=== PATIENT | female | born 1960 | race Caucasian/White ===

== ENCOUNTER → 2018-07-09 12:23 | Outpatient (CLI) | payer OTHER, SELFPAY ==
[2018-07-10 04:10] LABS: HEPATITIS B SURFACE AG Negative (Negative); Hepatitis A AB, Total Negative (Negative); Hepatitis A IgM Antibody Negative (Negative); Hepatitis B Core AB IgM Negative (Negative); Hepatitis B Core Ab Total Negative (Negative); Hepatitis C Ab <0.1 s/co ratio (0.0-0.9)
[2018-07-10 11:10] LABS: Hep B Surface Antibodies Reactive (.)
== END ==
PROVIDERS: Family Provider Family Medicine; PCP Family Medicine; Referring Provider Dermatology Pediatric Dermatology; Visit Provider Dermatology Pediatric Dermatology
DX: L66.1 Lichen planopilaris (principal); L40.0 Psoriasis vulgaris
CPT/HCPCS: 36415; 86704; 86705; 86706; 86708; 86709; 86803; 87340

== ENCOUNTER → 2018-11-12 12:17 | Outpatient (CLI) | payer OTHER, SELFPAY ==
--- NOTE | 2018-11-12 12:20 | RAD_ITS ---
STUDY: X-RAY - CERVICAL SPINE REASON FOR EXAM: Female, 58 years old. Cervical pain. TECHNIQUE: 6 view(s) of the cervical spine were obtained. COMPARISON: None FINDINGS: Normal anterior atlantoaxial articulation. Normal odontoid process. Normal cervical lordosis. There is multi-level endplate spondylosis. Normal disc space heights. There is minimal neural foraminal narrowing on the right C5-6 and on the left C5-C6 and C6-7. There is no evidence of acute fracture or loss of vertebral axial height. There is maintenance of normal alignment The soft tissue structures are unremarkable. RAD/Cerv Spine 4 or 5 Views IMPRESSION: Mild degenerative changes of the cervical spine. Electronically Signed: Cade Webber DO at 21:36 EST Tel [phone], Service support ,
== END ==
PROVIDERS: Family Provider Family Medicine; PCP Family Medicine; Referring Provider Family Medicine; Visit Provider Family Medicine
DX: M54.2 Cervicalgia (principal); G89.29 Other chronic pain
CPT/HCPCS: 36415; 72050

== ENCOUNTER → 2018-12-13 11:10 | Outpatient (CLI) | payer OTHER, SELFPAY ==
--- NOTE | 2018-12-13 11:18 | RAD_ITS ---
STUDY: X-RAY - LUMBAR SPINE REASON FOR EXAM: Female, 58 years old. Chronic pain radiating to left leg TECHNIQUE: 5 view(s) of the lumbar spine were obtained. COMPARISON: Prior comparison studies are not available for review at this time. FINDINGS: Normal lumbar lordosis. There is no substantial scoliosis. There is a normal alignment of the vertebrae. There is diffuse demineralization with multi-level endplate spondylosis. Disc spaces are relatively preserved. There is no demonstrated fracture. There is no demonstrated spondylolysis of the pars interarticulares. The soft tissue structures are unremarkable. RAD/L/S Spine Min 4 Views IMPRESSION: 1. Mild spondylosis. Relative preservation of disc spaces. 2. No spondylolisthesis or spondylolysis. Electronically Signed: Morris Dawson MD at 12:08 EDT , Service support ,
== END ==
PROVIDERS: Family Provider Family Medicine; PCP Family Medicine; Referring Provider Nurse Practitioner Family; Visit Provider Nurse Practitioner Family
DX: M54.9 Dorsalgia, unspecified (principal)
CPT/HCPCS: 72110

== ENCOUNTER → 2020-04-13 16:27 | Outpatient (CLI) | payer OTHER, SELFPAY ==
[2020-04-13 17:31] LABS: Hematocrit 42.8 % (37-47); Hemoglobin 13.6 g/dL (12.0-15.0); Mean Corp Hgb Conc 31.8 g/dL (32-36); Mean Corpuscular Volume 97.5 fL (81-99); Mean Platelet Vol. 9.8 fl (6.2-12.0); Platelet Count 313 K/mm3 (150-450); RBC Distribution Width CV 12.2 % (11.6-14.6); RBC Distribution Width SD 44.4 fl (35.1-43.9); Red Blood Count 4.39 M/mm3 (4.2-5.4); White Blood Count 7.8 K/mm3 (4.4-11.0)
[2020-04-13 17:49] LABS: BUN 9 mg/dL (7-18); Creatinine, Serum 0.76 mg/dL (0.55-1.02); Glucose 96 mg/dL (74-106)
[2020-04-13 17:50] LABS: AST(SGOT) 23 U/L (15-37); Alanine Aminotransfer ALT/SGPT 29 U/L (13-56); Albumin, Serum 3.8 g/dL (3.2-5.0); Alkaline Phosphatase 77 U/L (45-117); Anion Gap 3 (5-15); BUN/Creat Ratio 11.8 RATIO (10-20); Calcium,Total 8.6 mg/dL (8.5-10.1); Chloride 107 mmol/L (98-107); Cholesterol 227 mg/dL (200); EST Glomerular Filtration Rate 83 mL/min (>60); Est Glom Filt Rate - Afr Amer 101 mL/min (>60); Globulin 3.8 g/dL (2.2-4.2); High Density Lipoprotein 67 mg/dL; Magnesium 2.5 mg/dL (1.6-2.6); Phosphorus 2.8 mg/dL (2.5-4.9); Potassium 3.7 mmol/L (3.5-5.1); Protein, Total 7.6 g/dL (6.4-8.2); Sodium Level 138 mmol/L (136-145); Thyroid Stim Hormone (TSH) 3.03 uIU/mL (0.358-3.74); Triglycerides 249 mg/dL; Very Low Density Lipoprotein 50 mg/dL (5-40)
[2020-04-13 18:30] LABS: Vitamin B12 > 2000 pg/mL (211-911); Vitamin D,25 Hydroxy 35.3 ng/mL
[2020-04-14 08:32] LABS: PTHIN 79.4 pg/mL (18.4-80.1)
== END ==
PROVIDERS: PCP Family Medicine; Referring Provider Family Medicine; Visit Provider Family Medicine
DX: K50.90 Crohn's disease, unspecified, without complications (principal); Z13.220 Encounter for screening for lipoid disorders; M81.0 Age-related osteoporosis without current pathological fracture; E53.8 Deficiency of other specified B group vitamins
CPT/HCPCS: 80053; 80061; 82306; 82330; 82607; 83735; 83970; 84100; 84443; 85027

== ENCOUNTER → 2020-06-18 13:08 | Outpatient (CLI) | payer OTHER, SELFPAY | PROVIDERS: PCP Family Medicine; Referring Provider Internal Medicine Gastroenterology; Visit Provider Internal Medicine Gastroenterology | DX: K50.90 Crohn's disease, unspecified, without complications (principal) | CPT/HCPCS: 36415 ==

== ENCOUNTER → 2021-07-15 | Outpatient (CLI) | payer OTHER, SELFPAY ==
[2021-07-20 13:27] LABS: HPV APTIMA, High Risk Negative (Negative)
[2021-07-20 13:32] LABS: HPV Reflexed? YES, CHARGE PATIENT
== END | disposition home or self-care (01) ==
PROVIDERS: PCP Family Medicine; Visit Provider Registered Nurse
DX: Z12.4 Encounter for screening for malignant neoplasm of cervix (principal)
CPT/HCPCS: 87624; 88175; G0145

== ENCOUNTER 2021-12-19 08:26 | Outpatient (CLI) | payer OTHER, SELFPAY ==
[2021-12-19 10:17] LABS: Erythrocyte Sedimentation Rate 8 mm/hr (0-30)
[2021-12-19 10:18] LABS: Hematocrit 41.4 % (37-47); Hemoglobin 13.6 g/dL (12.0-15.0); Mean Corp Hgb Conc 32.9 g/dL (32-36); Mean Corpuscular Hgb 31.4 pg (27.0-32.0); Mean Corpuscular Volume 95.6 fL (81-99); Mean Platelet Vol. 9.7 fl (6.2-12.0); Platelet Count 288 K/mm3 (150-450); RBC Distribution Width CV 12.4 % (11.6-14.6); Red Blood Count 4.33 M/mm3 (4.2-5.4); White Blood Count 5.1 K/mm3 (4.4-11.0)
[2021-12-19 10:28] LABS: PTHIN 96.4 pg/mL (18.4-80.1)
[2021-12-19 10:38] LABS: Vitamin B12 > 2000 pg/mL (211-911); Vitamin D,25 Hydroxy 26.1 ng/mL
[2021-12-19 10:48] LABS: AST(SGOT) 18 U/L (15-37); Alanine Aminotransfer ALT/SGPT 24 U/L (13-56); Albumin, Serum 3.7 g/dL (3.2-5.0); Alkaline Phosphatase 87 U/L (45-117); Anion Gap 5 (5-15); BUN 14 mg/dL (7-18); BUN/Creat Ratio 17.5 RATIO (10-20); Calcium,Total 8.9 mg/dL (8.5-10.1); Chloride 106 mmol/L (98-107); Cholesterol 217 mg/dL (200); EST Glomerular Filtration Rate 78 mL/min (>60); Est Glom Filt Rate - Afr Amer 95 mL/min (>60); Globulin 3.6 g/dL (2.2-4.2); Glucose 100 mg/dL (74-106); High Density Lipoprotein 62 mg/dL; Iron 56 ug/dL (50-170); Phosphorus 2.6 mg/dL (2.5-4.9); Potassium 3.9 mmol/L (3.5-5.1); Protein, Total 7.3 g/dL (6.4-8.2); Sodium Level 140 mmol/L (136-145); Thyroid Stim Hormone (TSH) 2.48 uIU/mL (0.358-3.74); Triglycerides 126 mg/dL; Very Low Density Lipoprotein 25 mg/dL (5-40)
== END 2021-12-19 23:59 | disposition home or self-care (01) ==
LOC: MTLAB 08:27
PROVIDERS: PCP Family Medicine; Referring Provider Family Medicine; Visit Provider Family Medicine
DX: K50.90 Crohn's disease, unspecified, without complications (principal); E53.8 Deficiency of other specified B group vitamins
CPT/HCPCS: 80053; 80061; 82306; 82330; 82607; 83540; 83735; 83970; 84100; 84443; 85027; 85652

== ENCOUNTER → 2022-06-22 | Outpatient (CLI) | payer OTHER, SELFPAY ==
[2022-06-22 10:06] LABS: Absolute Neutrophil Count 2.6 X10^3/uL (2.0-7.7); Basophil# 0.03 X10^3/uL; Basophil% 0.6 % (0-1); Eosinophil# 0.32 X10^3/uL; Eosinophils% 6.2 % (0-5); Hematocrit 41.4 % (37-47); Hemoglobin 13.7 g/dL (12.0-15.0); Lymphocyte % 32.9 % (19-41); Mean Corp Hgb Conc 33.1 g/dL (32-36); Mean Corpuscular Hgb 32.4 pg (27.0-32.0); Mean Corpuscular Volume 97.9 fL (81-99); Mean Platelet Vol. 9.6 fl (6.2-12.0); Monocyte# 0.47 X10^3/uL; Monocyte% 9.1 % (0-10); NRBC Flagged by Analyzer 0 % (0-5); Neutrophil # 2.63 X10^3/uL (2.7-7.7); Platelet Count 273 K/mm3 (150-450); RBC Distribution Width CV 12.6 % (11.6-14.6); RBC Distribution Width SD 45.2 fl (35.1-43.9); Red Blood Count 4.23 M/mm3 (4.2-5.4); White Blood Count 5.2 K/mm3 (4.4-11.0)
[2022-06-22 10:30] LABS: PTHIN 90.2 pg/mL (18.4-80.1)
[2022-06-22 10:34] LABS: Vitamin D,25 Hydroxy 25.6 ng/mL
[2022-06-22 10:41] LABS: AST(SGOT) 24 U/L (15-37); Alanine Aminotransfer ALT/SGPT 29 U/L (13-56); Albumin, Serum 3.6 g/dL (3.2-5.0); Alkaline Phosphatase 94 U/L (45-117); Anion Gap 4 (5-15); BUN 9 mg/dL (7-18); BUN/Creat Ratio 13.2 RATIO (10-20); Chloride 108 mmol/L (98-107); Creatinine, Serum 0.68 mg/dL (0.55-1.02); EST Glomerular Filtration Rate 93 mL/min (>60); Est Glom Filt Rate - Afr Amer 113 mL/min (>60); Globulin 3.5 g/dL (2.2-4.2); Glucose 94 mg/dL (74-106); Magnesium 2.2 mg/dL (1.6-2.6); Potassium 3.9 mmol/L (3.5-5.1); Protein, Total 7.1 g/dL (6.4-8.2); Sodium Level 141 mmol/L (136-145); Thyroid Stim Hormone (TSH) 3.95 uIU/mL (0.358-3.74)
[2022-06-23 15:47] LABS: V-Zoster IgG (Immunity) 819 index (Immune >165)
== END | disposition home or self-care (01) ==
LOC: MFPLAB 09:24
PROVIDERS: PCP Family Medicine; Referring Provider Family Medicine; Visit Provider Family Medicine
DX: Z01.84 Encounter for antibody response examination (principal); K50.90 Crohn's disease, unspecified, without complications; M81.0 Age-related osteoporosis without current pathological fracture
CPT/HCPCS: 36415; 80053; 82306; 82330; 83735; 83970; 84443; 85025; 86787

== ENCOUNTER → 2022-12-26 | Outpatient (CLI) | payer OTHER, SELFPAY ==
[2022-12-26 10:35] LABS: Anion Gap 1 (5-15); BUN 12 mg/dL (7-18); BUN/Creat Ratio 15.2 RATIO (10-20); Calcium,Total 9.3 mg/dL (8.5-10.1); Chloride 107 mmol/L (98-107); Creatinine, Serum 0.79 mg/dL (0.55-1.02); EST Glomerular Filtration Rate 79 mL/min (>60); Est Glom Filt Rate - Afr Amer 95 mL/min (>60); Glucose 106 mg/dL (74-106); Potassium 3.9 mmol/L (3.5-5.1); Sodium Level 137 mmol/L (136-145); T4 Free Direct 1.17 ng/dL (0.76-1.46); Thyroid Stim Hormone (TSH) 5.52 uIU/mL (0.358-3.74)
[2022-12-26 10:54] LABS: Vitamin D,25 Hydroxy 35.2 ng/mL
== END | disposition home or self-care (01) ==
LOC: MFPLAB 08:58
PROVIDERS: PCP Family Medicine; Referring Provider Family Medicine; Visit Provider Family Medicine
DX: E21.3 Hyperparathyroidism, unspecified (principal); R79.89 Other specified abnormal findings of blood chemistry; E55.9 Vitamin D deficiency, unspecified
CPT/HCPCS: 36415; 80048; 82306; 83970; 84439; 84443

== ENCOUNTER → 2023-08-14 | Outpatient (CLI) | payer OTHER, SELFPAY ==
[2023-08-14 12:28] LABS: Ionized Calcium 5.03 mg/dL (4.36-5.20)
[2023-08-14 12:28] LABS: Anion Gap 5 (5-15); BUN 10 mg/dL (7-18); BUN/Creat Ratio 13.2 RATIO (10-20); Calcium,Total 8.8 mg/dL (8.5-10.1); Chloride 107 mmol/L (98-107); Cholesterol 226 mg/dL (200); Creatinine, Serum 0.76 mg/dL (0.55-1.02); EST Glomerular Filtration Rate 82 mL/min (>60); Est Glom Filt Rate - Afr Amer 100 mL/min (>60); Glucose 96 mg/dL (74-106); High Density Lipoprotein 74 mg/dL; Magnesium 2.4 mg/dL (1.6-2.6); Phosphorus 2.7 mg/dL (2.5-4.9); Potassium 4.5 mmol/L (3.5-5.1); Sodium Level 140 mmol/L (136-145); Thyroid Stim Hormone (TSH) 2.31 uIU/mL (0.358-3.74); Triglycerides 125 mg/dL; Very Low Density Lipoprotein 25 mg/dL (5-40)
[2023-08-14 12:29] LABS: PTHIN 96.9 pg/mL (18.4-80.1)
[2023-08-14 12:31] LABS: Vitamin B12 > 2000 pg/mL (211-911); Vitamin D,25 Hydroxy 59.1 ng/mL
== END | disposition home or self-care (01) ==
LOC: MTLAB 10:26
PROVIDERS: PCP Family Medicine; Referring Provider Family Medicine; Visit Provider Family Medicine
DX: E21.3 Hyperparathyroidism, unspecified (principal); M81.0 Age-related osteoporosis without current pathological fracture; R79.89 Other specified abnormal findings of blood chemistry; E61.2 Magnesium deficiency; E55.9 Vitamin D deficiency, unspecified; E53.8 Deficiency of other specified B group vitamins; Z13.220 Encounter for screening for lipoid disorders
CPT/HCPCS: 80048; 80061; 82306; 82330; 82607; 83735; 83970; 84100; 84443

== ENCOUNTER → 2023-11-01 | Outpatient (CLI) | payer OTHER, SELFPAY ==
--- NOTE | 2023-11-01 08:08 | BI_ITS ---
MAMMOGRAPHY - BILATERAL SCREENING REASON FOR EXAM: Female, 63 years old. Routine annual screening examination. PERTINENT HISTORY: Non-contributory. TECHNIQUE: Digital bilateral breast heaven (3D mammographic acquisition) in the CC and MLO projections. 2-D mediolateral oblique (MLO) and craniocaudad (CC) views of both breasts were obtained. CAD: Full Field Digital Mammography with Computer Added Detection was performed. COMPARISON: Comparison is made with prior outside examination dated August 31, 2017. FINDINGS: Breast Composition: The breasts are extremely dense, which lowers the sensitivity of mammography. There are no dominant masses or suspicious calcifications. Small benign-appearing bilateral axillary lymph nodes. No other significant abnormalities are identified. There has been no significant change since the prior study. BI/SCRN MAMM (CAD)W/HEAVEN BILAT IMPRESSION: Stable bilateral screening mammogram. Yearly follow-up mammogram recommended. (A) ASSESSMENT CATEGORY: BIRADS Category 2: Benign. A letter regarding these results will be sent to the patient by the facility within 30 days. Approximately 10% of breast cancers are not detected by mammography. A normal mammogram should not delay biopsy of a clinically suspicious abnormality. [id number] Electronically Signed: Robin Broussard MD at 8:46 EST ,
--- OUTSIDE RECORDS SUMMARY | 2023-11-01 08:14 | XMS RPT_ITS | CCD ---
Author Name Unknown Address [address] [place] [address] Organization [facility] Care Team Providers Care Industrial Maintenance Repairer Helper Name Role Phone Helio Wiley Unavailable [phone] Kris Castaneda Unavailable Unavailabl e Allergies Allergy Classification Reported Allergen(s) Allergy Type Date of Onset Reaction(s) Facility (1 source) inFLIXimab Drug Allergy Hives/Urticaria [facility] (1 source) Penicillin Drug Allergy Itching [facility] Medications Current Medications Medication Drug Class(es) Dates Sig (Normalized) Sig (Original) 0.8 ml adalimumab 50 mg/ml prefilled syringe (1 source) Tumor Necrosis Factor Alpesh Humira 40 mg/0.8 mL subcutaneous kit ; subcutaneous every 2 weeks Quantity: 0 Refills: 0 Ordered: 08-Nov-2020 Raquel Treadwell Generic Substitution Allowed Cholecalciferol (1 source) Vitamin D take 1 tablet by mouth once daily Vitamin D3 ; 1 tab(s) orally once a day Quantity: 0 Refills: 0 Ordered: 08-Nov-2020 Raquel Treadwell Generic Substitution Allowed 12 hr HYDROcodone bitartrate 10 mg extended release oral capsule (1 source) Opioid Agonist take 1 capsule by mouth every twelve hours as needed HYDROcodone 10 mg oral capsule, extended release ; 1 cap(s) orally every 12 hours, As Needed Quantity: 0 Refills: 0 Ordered: 11-Nov-2020 Rhoda Dye Generic Substitution Allowed nitrofurantoin, macrocrystals 25 mg / nitrofurantoin, monohydrate 75 mg oral capsule (1 source) Nitrofuran Antibacterial take 1 capsule by mouth once daily Macrobid 100 mg oral capsule ; 1 cap(s) orally once a day Quantity: 0 Refills: 0 Ordered: 08-Nov-2020 Raquel Treadwell Generic Substitution Allowed Completed/Discontinued Medications Medication Drug Class(es) Dates Sig (Normalized) Sig (Original) predniSONE 20 mg oral tablet (1 source) Start: 08-23-2021 End: 08-23-2021 take 1 tablet by mouth once at mealtime, then take 1 tablet by mouth once daily, then take 1 tablet by mouth once daily predniSONE 20 mg oral tablet ; 1 tab(s) orally once 3XDAY FOR 3 DAYS THEN 1 TAB DAILY 2X DAY FOR 3 DAYS THEN ONE TAB DAILY FOR 3 DAYS Quantity: 18 Refills: 0 Ordered: 23-Aug-2021 Freeman Miranda Start: 23-Aug-2021 End: 23-Aug-2021 Generic Substitution Allowed Comments: It is very important that you take or use this exactly as directed. Do not skip doses or discontinue unless directed by your doctor.Obtain medical advice before taking any non-prescription drugs as some may affect the action of this medication.Take with food or milk. Problems Problem Classification Problem Date Documented Da te Episodic/Chronic Nonspecific chest pain (5 sources) Chest pain; Translations: [Chest pain, unspecified] 08-23-2021 Episodic Spondylosis; intervertebral disc disorders; other back problems (1 source) Cervical radiculopathy; Translations: [Brachial neuritis or radiculitis NOS] 08-23-2021 Episodic Unclassified (2 sources) CHEST PAINS 08-23-2021 Results Test Name Value Interpretation Reference Range Facil ity Vital Signs Date Time Vital Sign Value Performing Clinician Lindy orellana 08-23-2021 12:00-0500 Diastolic blood pressure 68 mm[Hg] Helio Wiley Other Phone: [facility] 08-23-2021 12:00-0500 Heart rate 70 /min Helio Wiley Other Phone: [facility] 08-23-2021 12:00-0500 Respiratory rate 16 /min Helio Wiley Other Phone: [facility] 08-23-2021 12:00-0500 SaO2% (BldA) [Mass fraction] 99 % Helio Wiley Other Phone: [facility] 08-23-2021 12:00-0500 Systolic blood pressure 115 mm[Hg] Helio Wiley Other Phone: [facility] 08-23-2021 08:40-0500 Body height 165.1 cm Helio Wiley Other Phone: [facility] 08-23-2021 08:40-0500 Body temperature 99.14 [degF] Helio Wiley Other Phone: [facility] 08-23-2021 08:40-0500 Body weight 55 kg Helio Wiley Other Phone: [facility] Encounters Encounter Date Encounter Type Care Provider Facility Start: 08-23-2021 End: 08-23-2021 Emergency department patient visit Kris Castaneda [facility] Emergency 14 Procedures Date Procedure Procedure Detail Performing Clinician Start: 08-23-2021 End: 08-23-2021 EKG impression Kris Castaneda Start: 08-23-2021 End: 08-23-2021 EKG impression Kris Castaneda Plan of Treatment Date Care Activity Detail Author Start: 11-25-2020 H/O: L cataract extraction History of cataract surgery, left Date: 25-Nov-2020 [facility] Start: 11-11-2020 H/O: R cataract extraction History of right cataract surgery Date: 11-Nov-2020 [facility] Hip fracture Hip fracture [facility] History of laser ass isted in situ keratomileusis History of laser assisted in situ keratomileusis [facility] Payers Date Payer Category Payer Policy ID Unknown [facility] [place] Social History Date Type Detail Facility [facility] Tobacco smoking consumption unknown [facility] Clinical Notes 10-22-2020 to 11-26-2020 Note Date & Type Note Facility 11-26-2020 Note HNO ID: [id number] Author: Zane Ortiz Service: ? Author Type: Physician Type: Progress Notes Filed: 11/26/2020 8:25 AM Note Text: ASSESSMENT/PLAN: 1. Status post cataract extraction and insertion of intraocular lens of right eye - ICD9: V45.61, V43.1, ICD10: Z98.41, Z96.1 (primary diagnosis) 2. Status post cataract extraction and insertion of intraocular lens of left eye - ICD9: V45.61, V43.1, ICD10: Z98.42, Z96.1 Continue medications as directed: Current Ophthalmic Meds prednisoLONE acetate (PRED FORTE, ECONOPRED PLUS) 1 % ophthalmic suspension Use 1 Drop in the left eye four times daily four 7 days, then three times daily until 12/30/2020 keTORolac (ACULAR) 0.5 % ophthalmic solution Use 1 Drop in the left eye four times daily four 7 days, then three times daily until 12/30/2020 keTORolac (ACULAR) 0.5 % ophthalmic solution Use 1 Drop in the right eye three times daily until 12/16/2020 prednisoLONE acetate (PRED FORTE) 1 % ophthalmic suspension Use 1 Drop in the right eye three times daily until 12/16/2020 Systane Complete Artificial Tears - Use 1 Drop into both eyes three times a day. No follow up appointment given at [facility]/ [place], patient to follow up with [facility] 3. Status post LASIK surgery of both eyes - ICD9: V45.69, ICD10: Z98.890 4. High myopia, bilateral/history of high myopia - ICD9: 367.1, ICD10: H52.13 Axial length- right eye 27.12 left eye 27.53 Signs symptoms of detached retina discussed with patient Recommend dilated exam in 2 weeks Zane Ortiz MD I have confirmed and edited as necessary the relevant ophthalmic history, review of systems, surgical history, and ophthalmological examination findings as obtained by the ophthalmic technical staff. I have seen and examined Heather Mckeon. I have discussed the examination findings, diagnosis, and treatment options with Heather Mckeon and/or her family. I have also reviewed and agree with the assessment and plan as stated above and agree with all its relevant components. I gave the patient the opportunity to ask questions about the findings, diagnosis, and treatment options. [facility] 11-25-2020 Note Post Operative Note: Post-Procedure Diagnosis: 1. Combined Form Age Related Cataract Left Eye 2. Regular Astigmatism Left Eye Procedure: 1. Cataract Extraction with Toric Intraocular Lens Implant Left Eye Surgeon: Zane Ortiz MD Resident/Fellow/Other Junior Mechanical Engineer: None Estimated Blood Loss (mL): none Specimen: no Findings: 1. Combined Form Age Related Cataract Left Eye 2. Regular Astigmatism Left Eye Operative Report Dictated: Dictation: not applicable - note contains Operative Report Operative Report: The patient was correctly identified in the pre-operative area and the operative eye was marked. The operative eye was dilated in the pre-op area. Under the slit lamp the operative eye was marked using a fine marking pen at 3 o'clock, 6 o'clock and 9 o'clock at the limbus. The patient was taken to the operating room and time out was performed prior to starting the procedure. Combined anesthesia with IV sedation and topical tetracaine eye drops was given. The operative eye was prepped and draped in the standard sterile ophthalmic fashion in preparation for the ophthalmic surgery. A Hernandez wire speculum was then placed between the eyelids and the operative microscope was placed over the operative eye. The corrected axis of the Toric Intraocular lens was marked with the help of a marking pen before the start of the procedure. A paracentesis incision was made approximately 30 degrees from the planned surgical incision site with the help of the MVR blade. 1% Lidocaine MPF with Phenylephrine 1.5% PF was injected into the anterior chamber through the paracentesis incision. A near limbal clear corneal incision was fashioned in the temporal quadrant just outside the vascular arcade and viscoat was injected into the anterior chamber to firm the eye. A bent needle cystotome and Utrata forceps were used to create a continuous curvilinear capsulorrhexis. BSS was injected beneath the anterior capsule to hydrodissect the nucleus free form the adjacent cortex and capsule. The nucleus of the cataractous lens was removed with the phacoemulsification instrument. The residual cortex was aspirated with the irrigation/aspiration handpiece. The posterior capsule was then polished with the help of soft irrigation/aspiration tip. Provisc viscoelastic was then injected into the eye to form the anterior chamber and to open the capsular bag. Toric intraocular lens implant was taken from the sterile wrapping, inspected under the surgical microscope and found to be in good condition. The toric intraocular lens implant 21.0D T3 was injected into the capsular bag and rotated to its desired axis of 100. The viscoeclastic material was aspirated from the anterior chamber and from behind the lens optics. The anterior chamber was inflated with the help of BSS to moderate tension and the edges of the surgical incision were hydrated with BSS. Vigamox was injected into the anterior chamber and into the capsular bag through the paracentesis incision. The surgical incision was inspected and found to be water tight. The wire speculum and drapes were removed. Pred Forte eye drops, Acular eye drops and Betadine 5% sterile ophthalmic was instilled into the conjunctival sac. The patient tolerated the procedure well and was taken to the recovery room in stable condition. Signature/Cosignature/Attestation: Note Completion: Attending AttestationI performed the procedure without a resident Electronic Signatures: Zane Ortiz) (Signed 25-Nov-2020 08:12) Authored: Post Operative Note, Note Completion Last Updated: 25-Nov-2020 08:12 by Zane Ortiz) [facility] 11-25-2020 Note History & Physical R eviewed: /Lactating: Are You no Are You Currently Breastfeedingno I have reviewed the History and Physical dated: 20-Nov-2020 History and Physical reviewed and relevant findings noted. Patient examined to review pertinent physical findings.: No significant changes Home Medications Reviewed: no changes noted Allergies Reviewed: no changes noted ERAS (Enhanced Recovery After Surgery): ERAS Patient: no Consent: COVID-19 Consent: COVID-19 Risk ConsentSurgeon has reviewed marcus risks related to the risk of kristyn COVID-19 and if they contract COVID-19 what the risks are. Signatures/Attestation: Note Completion: Attending Provider Inpatient Certification StatementObservation patient/other outpatient visits Electronic Signatures: Zane Ortiz) (Signed 25-Nov-2020 06:51) Authored: History & Physical Reviewed, ERAS, Consent, Note Completion Last Updated: 25-Nov-2020 06:51 by Zane Ortiz) [facility] 11-20-2020 Note HNO ID: [id number] Author: Zane Ortiz Service: ? Author Type: Physician Type: Progress Notes Filed: 11/20/2020 11:47 AM Note Text: ASSESSMENT/PLAN: 1. Combined forms of age-related cataract of left eye - ICD9: 366.19, ICD10: H25.812 (primary diagnosis) Cataract Presurgical Documentation Cataract: Left Eye Patient reported symptoms: Associated symptoms Positive for: Blurred Vision, decreased vision, difficulty with reading, difficulty with watching television, halos, glare, starbursts Negative for: Double Vision, foreign body sensation, photophobia, eye discharge, crossed eye, wandering eye Current Visual Acuity: Right Eye Distance SC 20/25 Left Eye Distance CC 20/50 Visual Function: Heather Mckeon states that the decline in vision from the cataract impedes the ability to read small print and watch television as well as other activities of daily living. Heather Mckeon has confirmed that she is no longer able to function adequately on a day-to-day basis because of her current visual condition. Further, it is my medical opinion that the cataract is the primary cause, or at least a significantly contributory cause of her visual dysfunction. With uncomplicated cataract surgery and lens implantation, it is my expectation that her visual function and quality of life will improve, significantly. The risks, benefits, alternatives, personnel and complications of cataract surgery with lens implantation were discussed with Heather Mckeon in detail. She appeared to understand and asked that I proceed with plans for surgery. Patient wishes to have traditional cataract surgery with astigmatism correction by Toric Intraocular lens. Patient wishes to have cataract surgery with the option stated above. Patient understands that an intraocular lens implant does not necessarily replace the need for glasses. Patient understands that it is impossible for the surgeon to inform him/her of every possible complication that may occur. The surgeon has answered all of the patient's questions. Patient understands that if he/she has a mature or dense cataract, pseudoexfoliation cataract, or history of use of Flomax, he/she may require the use of Maluyugin Ring and/or Vision Blue during surgery. Patient understands the risks, benefits, and alternatives to surgery. Traditional Cataract Surgery with Toric Intraocular Lens Implant Left Eye scheduled for 11/25/2020 at [facility]. Discussed modified monovision with patient, patient would like to proceed with modified monovision target -1.25 left eye Current Ophthalmic Meds fluorometholone (FML LIQUID FILM) 0.1 % ophthalmic suspension Use 1 Drop in the left eye three times daily. Continue: Systane Complete solution instill 1 drop 3 times daily Both Eyes. PHYSICAL EXAM: Vital Signs: Blood pressure 98/78, pulse 73, temperature 36.7 ?C (98.1 ?F). Respiratory: Normal breath sounds, no wheezing. CARD: Normal heart sounds 1 AND 2, normal sinus rhythm. Order placed for COVID-19 testing to be done at [facility]. Hospital to contact patient with date and time. 2. Regular astigmatism of left eye - ICD9: 367.21, ICD10: H52.222 Traditional Cataract Surgery with Toric Intraocular Lens Implant Left Eye scheduled for 11/25/2020 at [facility]. 3. Status post cataract extraction and insertion of intraocular lens of right eye - ICD9: V45.61, V43.1, ICD10: Z98.41, Z96.1 Current Ophthalmic Meds keTORolac (ACULAR) 0.5 % ophthalmic solution Use 1 Drop in the right eye four times daily. prednisoLONE acetate (PRED FORTE) 1 % ophthalmic suspension Use 1 Drop in the right eye four times daily. 4. Status post LASIK surgery of both eyes - ICD9: V45.69, ICD10: Z98.890 Monitor 5. Crohn's disease with complication, unspecified gastrointestinal tract location (HCC) - ICD9: 555.9, ICD10: K50.919 Continue to monitor with primary care physician. 6. Arthritis - ICD9: 716.90, ICD10: M19.90 Continue to monitor with primary care physician. Zane Ortiz MD I have confirmed and edited as necessary the relevant ophthalmic history, review of systems, surgical history, and ophthalmological examination findings as obtained by the ophthalmic technical staff. I have seen and examined Heather Mckeon. I have discussed the examination findings, diagnosis, and treatment options with Heather Mckeon and/or her family. I have also reviewed and agree with the assessment and plan as stated above and agree with all its relevant components. I gave the patient the opportunity to ask questions about the findings, diagnosis, and treatment options. [facility] 11-12-2020 Note HNO ID: [id number] Author: Zane Ortiz Service: ? Author Type: Physician Type: Progress Notes Filed: 11/12/2020 9:33 AM Note Text: ASSESSMENT/PLAN: 1. Status post cataract extraction and insertion of intraocular lens of right eye - ICD9: V45.61, V43.1, ICD10: Z98.41, Z96.1 (primary diagnosis) -Intraocular lens well centered -Patient pleased with post operative vision -Patient to see Dr. Reyes in one week 2. Combined form of age-related cataract, left eye - ICD9: 366.19, ICD10: H25.812 -Patient wishes to have traditional cataract surgery with basic Intraocular lens scheduled for the left eye on 11-25-2020 at [facility]. Patient wishes to have cataract surgery with the option stated above. Patient understands that an intraocular lens implant does not necessarily replace the need for glasses. Patient understands that it is impossible for the surgeon to inform him/her of every possible complication that may occur. The surgeon has answered all of the patient's questions. Patient understands that if he/she has a mature or dense cataract, pseudoexfoliation cataract, or history of use of Flomax, he/she may require the use of Maluyugin Ring and/or Vision Blue during surgery. Patient understands the risks, benefits, and alternatives to surgery. -Patient wishes to have the left eye corrected for near vision, I have advised patient to speak with Dr. Reyes in regards to the level of near correction that would benefit patient. 3. Regular astigmatism of left eye - ICD9: 367.21, ICD10: H52.222 -Stable / Observe -Patient declines any form of astigmatism correction available in combination with cataract surgery of the left eye. 4. Status post LASIK surgery of both eyes - ICD9: V45.69, ICD10: Z98.890 -History of high myopia in both eyes -Laser in situ keratomileusis performed in 1997 5. Crohn's disease with complication, unspecified gastrointestinal tract location (HCC) - ICD9: 555.9, ICD10: K50.919 6. Arthritis - ICD9: 716.90, ICD10: M19.90 -Continue care with your primary care provider and/or specialists as directed. Zane Ortiz MD I have confirmed and edited as necessary the relevant ophthalmic history, review of systems, surgical history, and ophthalmological examination findings as obtained by the ophthalmic technical staff. I have seen and examined Heather Mckeon. I have discussed the examination findings, diagnosis, and treatment options with Heather Mckeon and/or her family. I have also reviewed and agree with the assessment and plan as stated above and agree with all its relevant components. I gave the patient the opportunity to ask questions about the findings, diagnosis, and treatment options. [facility] 11-11-2020 Note Post Operative Note: Post-Procedure Diagnosis: 1. Combined Form Age Related Cataract Right eye Procedure: 1. Cataract Extraction with Intraocular Lens Implant Right Eye Surgeon: Zane Ortiz MD Resident/Fellow/Other Junior Mechanical Engineer: None Estimated Blood Loss (mL): none Specimen: no Findings: 1. Combined Form Age Related Cataract Right eye Operative Report Dictated: Dictation: not applicable - note contains Operative Report Operative Report: The patient was correctly identified and the patient's operative eye was marked with a marking pen and verified with the patient in the pre-operative area. The operative eye was dilated in the preoperative area. The patient was then taken to the operating room where timeout was performed before starting the procedure. Combined anesthesia with intravenous sedation and topical tetracaine eyedrops were instilled into the right eye. The operative eye was prepped and draped in the standard sterile ophthalmic fashion in preparation for ophthalmic surgery. A Hernandez wire speculum was then inserted between the eyelids of the right eye and the operating microscope was placed over the right eye. A paracentesis incision was made approximately 30 away from the planned surgical incision site with the help of MVR blade. 1% lidocaine MPF with Phenylephrine 1.5% PF was injected into the anterior chamber through the paracentesis incision. A near limbal clear corneal incision was fashioned in the temporal quadrant just outside the vascular arcade and Viscoat was injected into anterior chamber to firm the eye. A bent needle cystotome was used and Utrata forceps were utilized to create a continuous curvilinear capsulorrhexis. BSS was injected beneath the anterior capsule to hydrodissect the nucleus from adjacent cortex and capsule. The residual cortex was then aspirated with irrigation/aspiration handpiece. The posterior capsule was then polished with the help of soft irrigation-aspiration tip. Provisc viscoelastic was then injected into the eye to reform the anterior chamber and to open the capsular bag. The intraocular lens implant was taken from its sterile wrapping, inspected under the surgical microscope and found to be in good condition. The intraocular lens implant 18.0D was injected into the capsule bag. The Provisc was then aspirated from the anterior chamber and from behind the intraocular lens implant. The anterior chamber was inflated with the help of BSS to moderate tension. And the edges of the surgical incision were then hydrated with the help of BSS. Vigamox was then injected into the anterior chamber and into the capsule bag through the paracentesis incision. The surgical wound was then inspected and found to be watertight. The wire speculum and drapes were then removed. Pred Forte eyedrops, Acular eyedrops and Betadine 5% sterile ophthalmic solution were instilled in the conjunctival sac. The patient tolerated the procedure well and was taken to recovery room in stable condition. Signature/Cosignature/Attestation: Note Completion: Attending AttestationI performed the procedure without a resident Electronic Signatures: Zane Ortiz) (Signed 11-Nov-2020 11:17) Authored: Post Operative Note, Note Completion Last Updated: 11-Nov-2020 11:17 by Zane Ortiz) [facility] 11-11-2020 Note History & Physical R eviewed: /Lactating: Are You no Are You Currently Breastfeedingno I have reviewed the History and Physical dated: 06-Nov-2020 History and Physical reviewed and relevant findings noted. Patient examined to review pertinent physical findings.: No significant changes Home Medications Reviewed: no changes noted Allergies Reviewed: no changes noted ERAS (Enhanced Recovery After Surgery): ERAS Patient: no Consent: COVID-19 Consent: COVID-19 Risk ConsentSurgeon has reviewed marcus risks related to the risk of kristyn COVID-19 and if they contract COVID-19 what the risks are. Signatures/Attestation: Note Completion: Attending Provider Inpatient Certification StatementObservation patient/other outpatient visits Electronic Signatures: Zane Ortiz) (Signed 11-Nov-2020 08:48) Authored: History & Physical Reviewed, ERAS, Consent, Note Completion Last Updated: 11-Nov-2020 08:48 by Zane Ortiz) [facility] 11-08-2020 Note HNO ID: [id number] Author: Zane Ortiz Service: ? Author Type: Physician Type: Progress Notes Filed: 11/08/2020 4:24 PM Note Text: ASSESSMENT/PLAN: 1. Combined forms of age-related cataract of right eye - ICD9: 366.19, ICD10: H25.811 (primary diagnosis) PHYSICAL EXAM: Vital Signs: Blood pressure 98/78, pulse 73. Respiratory: Normal breath sounds, no wheezing. CARD: Normal heart sounds 1 AND 2, normal sinus rhythm. Cataract Presurgical Documentation Cataract:Right eye Patient reported symptoms: Associated symptoms Positive for: Blurred Vision, decreased vision, floaters, difficulty with reading, difficulty with watching television, dryness, halos, glare, starbursts Negative for: Eye Redness, foreign body sensation, itching, flashes, tearing Current Visual Acuity: Right Eye Distance CC 20/50 Left Eye Distance CC 20/40 Visual Function: Heather Mckeon states that the decline in vision from the cataract impedes the ability to read, watch television as well as other activities of daily living. Heather Mckeon has confirmed that she is no longer able to function adequately on a day-to-day basis because of her current visual condition. Further, it is my medical opinion that the cataract is the primary cause, or at least a significantly contributory cause of her visual dysfunction. With uncomplicated cataract surgery and lens implantation, it is my expectation that her visual function and quality of life will improve, significantly. The risks, benefits, alternatives, personnel and complications of cataract surgery with lens implantation were discussed with Heather Mckeon in detail. she appeared to understand and asked that I proceed with plans for surgery. Patient wishes to have traditional cataract surgery with basic Intraocular lens 11/11/2020 at [facility]. Patient wishes to have cataract surgery with the option stated above. Patient understands that an intraocular lens implant does not necessarily replace the need for glasses. Patient understands that it is impossible for the surgeon to inform him/her of every possible complication that may occur. The surgeon has answered all of the patient's questions. Patient understands that if he/she has a mature or dense cataract, pseudoexfoliation cataract, or history of use of Flomax, he/she may require the use of Maluyugin Ring and/or Vision Blue during surgery. Patient understands the risks, benefits, and alternatives to surgery. Order placed for COVID-19 testing to be done at [facility]. Hospital to contact patient with date and time. 3. Combined form of age-related cataract, left eye - ICD9: 366.19, ICD10: H25.812 4. Regular astigmatism of left eye - ICD9: 367.21, ICD10: H52.222 Plan surgery left eye once right eye is completed 5. Status post LASIK surgery of both eyes - ICD9: V45.69, ICD10: Z98.890 History of high myopia -Laser in situ keratomileusis performed in 1997 Patient was cleared by Dr. Oliavrez/retina 6. Crohn's disease with complication, unspecified gastrointestinal tract location (HCC) - ICD9: 555.9, ICD10: K50.919 Continue care with primary care physician 7. Arthritis - ICD9: 716.90, ICD10: M19.90 Continue care with primary care physician Zane Ortiz MD I have confirmed and edited as necessary the relevant ophthalmic history, review of systems, surgical history, and ophthalmological examination findings as obtained by the ophthalmic technical staff. I have seen and examined Heather Mckeon. I have discussed the examination findings, diagnosis, and treatment options with Heather Mckeon and/or her family. I have also reviewed and agree with the assessment and plan as stated above and agree with all its relevant components. I gave the patient the opportunity to ask questions about the findings, diagnosis, and treatment options. [facility] 11-06-2020 Note HNO ID: [id number] Author: Zane Ortiz Service: ? Author Type: Physician Type: Progress Notes Filed: 11/06/2020 8:58 AM Note Text: ASSESSMENT/PLAN: 1. Combined forms of age-related cataract of right eye - ICD9: 366.19, ICD10: H25.811 (primary diagnosis) 2. Regular astigmatism of right eye - ICD9: 367.21, ICD10: H52.221 PHYSICAL EXAM: Vital Signs: Blood pressure 98/78, pulse 73. Respiratory: Normal breath sounds, no wheezing. CARD: Normal heart sounds 1 AND 2, normal sinus rhythm. Cataract Presurgical Documentation Cataract:Right eye Patient reported symptoms: Associated symptoms Positive for: Blurred Vision, difficulty with driving, difficulty with reading, difficulty with watching television, dryness, glare Negative for: Flashes, floaters, tearing, halos, burning Current Visual Acuity: Right Eye Distance CC 20/50 Left Eye Distance CC 20/40 Visual Function: Heather Mckeon states that the decline in vision from the cataract impedes the ability to read, watch television as well as other activities of daily living. Heather Mckeon has confirmed that she is no longer able to function adequately on a day-to-day basis because of her current visual condition. Further, it is my medical opinion that the cataract is the primary cause, or at least a significantly contributory cause of her visual dysfunction. With uncomplicated cataract surgery and lens implantation, it is my expectation that her visual function and quality of life will improve, significantly. The risks, benefits, alternatives, personnel and complications of cataract surgery with lens implantation were discussed with Heather Mckeon in detail. she appeared to understand and asked that I proceed with plans for surgery. Patient wishes to have traditional cataract surgery with basic Intraocular lens 11/11/2020 at [facility]. Patient wishes to have cataract surgery with the option stated above. Patient understands that an intraocular lens implant does not necessarily replace the need for glasses. Patient understands that it is impossible for the surgeon to inform him/her of every possible complication that may occur. The surgeon has answered all of the patient's questions. Patient understands that if he/she has a mature or dense cataract, pseudoexfoliation cataract, or history of use of Flomax, he/she may require the use of Maluyugin Ring and/or Vision Blue during surgery. Patient understands the risks, benefits, and alternatives to surgery. Order placed for COVID-19 testing to be done at [facility]. Hospital to contact patient with date and time. 3. Combined form of age-related cataract, left eye - ICD9: 366.19, ICD10: H25.812 4. Regular astigmatism of left eye - ICD9: 367.21, ICD10: H52.222 Plan surgery left eye once right eye is completed 5. Status post LASIK surgery of both eyes - ICD9: V45.69, ICD10: Z98.890 History of high myopia -Laser in situ keratomileusis performed in 1997 Patient was cleared by Dr. Olivarez/retina 6. Crohn's disease with complication, unspecified gastrointestinal tract location (HCC) - ICD9: 555.9, ICD10: K50.919 Continue care with primary care physician 7. Arthritis - ICD9: 716.90, ICD10: M19.90 Continue care with primary care physician Zane Ortiz MD I have confirmed and edited as necessary the relevant ophthalmic history, review of systems, surgical history, and ophthalmological examination findings as obtained by the ophthalmic technical staff. I have seen and examined Heather Mckeon. I have discussed the examination findings, diagnosis, and treatment options with Heather Mckeon and/or her family. I have also reviewed and agree with the assessment and plan as stated above and agree with all its relevant components. I gave the patient the opportunity to ask questions about the findings, diagnosis, and treatment options. [facility] 11-04-2020 Note HNO ID: [id number] Author: Zen Olivarez Service: ? Author Type: Physician Type: Progress Notes Filed: 11/04/2020 8:31 AM Note Text: Referred by Dr. Ortiz for eval before ctaract surgery- high myop 1. Previous high myopis s/p laser in situ keratomileusis (LASIK) -some cobblestone in periph, no other retinal pathology 2. Small nevus right eye 3. Nuclear sclerosis both eyes Plan to get done by Dr. Ortiz Clear for surgery Plan: Return to retina as needed I have confirmed and edited as necessary the relevant ophthalmic history, ROS, and the neuro exam findings as obtained by others. I have seen and examined this patient. I have discussed the case and the management of this patient's care with the Resident/Fellow, if applicable. I also have reviewed and agree with the assessment and plan as stated above and agree with all of its relevant components. Zen Olivarez MD [facility] 10-22-2020 Note HNO ID: [id number] Author: Zane Ortiz Service: ? Author Type: Physician Type: Progress Notes Filed: 10/22/2020 10:59 AM Note Text: ASSESSMENT/PLAN: 1. Combined form of age-related cataract, right eye - ICD9: 366.19, ICD10: H25.811 (primary diagnosis) 2. Combined form of age-related cataract, left eye - ICD9: 366.19, ICD10: H25.[address] Reyes's examination and notes today Blood pressure 98/78, pulse 73. Begin medications as directed: Current Ophthalmic Meds fluorometholone (FML LIQUID FILM) 0.1 % ophthalmic suspension Use 1 Drop in both eyes three times daily. Systane Complete Artificial Tears - Use 1 Drop into both eyes three times a day. Patient to have retina evaluation with Dr. Olivarez prior to cataract surgery Follow up 11/06/2020 for repeat Ascan 3. Status post LASIK surgery of both eyes - ICD9: V45.69, ICD10: Z98.890 4. High myopia, bilateral - ICD9: 367.1, ICD10: H52.13 History of high myopia -Laser in situ keratomileusis performed in [address] Olivarez 11/04/2020 5. Crohn's disease with complication, unspecified gastrointestinal tract location (HCC) - ICD9: 555.9, ICD10: K50.919 Continue care with primary care physician 6. Arthritis - ICD9: 716.90, ICD10: M19.90 Continue care with primary care physician Zane Ortiz MD I have confirmed and edited as necessary the relevant ophthalmic history, review of systems, surgical history, and ophthalmological examination findings as obtained by the ophthalmic technical staff. I have seen and examined Heather Mckeon. I have discussed the examination findings, diagnosis, and treatment options with Heather Mckeon and/or her family. I have also reviewed and agree with the assessment and plan as stated above and agree with all its relevant components. I gave the patient the opportunity to ask questions about the findings, diagnosis, and treatment options. [facility] Summary Purpose Family History No Family History Records FoundNo Family History Records FoundNo Family History Records FoundNo Family History Records FoundNo Family History Records FoundNo Family History Records FoundNo Family History Records Found Advance Directives No Advanced Directives Records FoundNo Advanced Directives Records FoundNo Advanced Directives Records FoundNo Advanced Directives Records FoundNo Advanced Directives Records FoundNo Advanced Directives Records FoundNo Advanced Directives Records Found Additional Source Comments INFORMATION SOURCE (unrecogn ized section and content) DATE CREATED AUTHOR AUTHOR'S ORGANIZ ATION 02/06/2019 [facility] DATE CREATED AUTHOR AUTHOR'S ORGANIZ ATION 04/05/2019 [facility] DATE CREATED AUTHOR AUTHOR'S ORGANIZ ATION 12/11/2019 [employer] DATE CREATED AUTHOR AUTHOR'S ORGANIZ ATION 11/24/2020 [facility] DATE CREATED AUTHOR AUTHOR'S ORGANIZ ATION 08/26/2021 [facility] DATE CREATED AUTHOR AUTHOR'S ORGANIZ ATION 10/14/2021 [facility] <item> Privacy Markings (unrecogniz ed section and content) Section Author: Ashley Del Valle PROHIBITION ON REDISCLOSURE OF CONFIDENTIAL INFORMATION This notice accompanies a disclosure of information concerning a client made to you with the consent of such client. FOR RECORDS PERTAINING TO PATIENTS WHO ARE OR HAVE BEEN ENROLLED IN A CHEMICAL DEPENDENCY/SUBSTANCEABUSE PROGRAM, SOME INFORMATION MAY BE OMITTED. This clinical summary was aggregated from multiple sources. Caution should be exercised in using it in the provision of clinical care. This summary normalizes information from multiple sources, and as a consequence, information in this document may materially change the coding, format and clinical context of patient data. In addition, data may be omitted in some cases. CLINICAL DECISIONS SHOULD BE BASED ON THE PRIMARY CLINICAL RECORDS. [employer] provides no warranty or guarantee of the accuracy or completeness of information in this document.
--- NOTE | 2023-11-01 08:30 | BD_ITS ---
STUDY: DUAL ENERGY X-RAY ABSORPTIOMETRY / DXA REASON FOR EXAM: Female, 63 years old. [id number] TECHNIQUE: Bone Mineral Density (BMD) measurements of lumbar spine and right hip were obtained. COMPARISON: None. FINDINGS: Lumbar Spine (L1-L4): g/cm2 (0.635) / T-score (-3.7) / Z-score (-2.3) Findings are suggestive of osteoporosis with a high fracture risk. Right Femur Total: g/cm2 (0.587) / T-score (-2.9) / Z-score (-1.9) Right Femoral Neck: g/cm2 (0.410) / T-score (-4.0) / Z-score (-2.6) BD/Dexa Bone Density Study IMPRESSION: The patient is considered osteoporotic as outlined below according to World Tod Organization (WHO) criteria with a high fracture risk. Reference Information: The T-score is the number of standard deviations above or below the standard which is normal for young adults at their peak bone mineral density. The World Health Organization (WHO) interprets the T-scores as follows: Above -1 Normal bone density Between -1 and -2.5 Osteopenia Equal to / or below -2.5 Osteoporosis As a practical clinical guideline, osteopenia may be graded as follows: Mild -1 through -1.5 Moderate -1.6 through -2.0 Severe -2.1 through -2.4 The Z-score is the number of standard deviations above or below age-matched controls. A Z-score of less than -1.5 would be considered abnormal. References: 1. NIH Osteoporosis and Related Bone Diseases www osteo.org 2. International Society for Clinical Densitometry www iscd.org 3. National Osteoporosis Foundation www nof.org Electronically Signed: Robin Broussard MD at 12:20 EST ,
== END | disposition home or self-care (01) ==
PROVIDERS: PCP Family Medicine; Referring Provider Family Medicine; Visit Provider Family Medicine
DX: Z12.31 Encounter for screening mammogram for malignant neoplasm of breast (principal); M81.0 Age-related osteoporosis without current pathological fracture
CPT/HCPCS: 77063; 77067; 77080

== ENCOUNTER → 2023-11-30 | Outpatient (CLI) | payer OTHER, SELFPAY ==
--- OUTSIDE RECORDS SUMMARY | 2023-11-30 09:55 | XMS RPT_ITS | CCD ---
Author Name Unknown Address [address] [place] [address] Organization [facility] Care Team Providers Care Burial Needs Salesperson Name Role Phone Helio Wiley Unavailable [phone] Kris Castaneda Unavailable Unavailabl e Allergies Allergy Classification Reported Allergen(s) Allergy Type Date of Onset Reaction(s) Facility (1 source) inFLIXimab Drug Allergy Hives/Urticaria [facility] (1 source) Penicillin Drug Allergy Itching [facility] Medications Current Medications Medication Drug Class(es) Dates [...] Time Vital Sign Value Performing Clinician Lindy orlelana 08-23-2021 12:00-0500 Diastolic blood pressure 68 mm[Hg] Helio Wiley Other Phone: [facility] 08-23-2021 12:00-0500 Heart rate 70 /min Helio Wiley Other Phone: [facility] 08-23-2021 12:00-0500 Respiratory rate 16 /min Helio Wiley Other Phone: [facility] 08-23-2021 12:00-0500 SaO2% (BldA) [Mass fraction] 99 % Helio Wiley Other Phone: [facility] 08-23-2021 12:00-0500 Systolic blood pressure 115 mm[Hg] Helio Wiley Other Phone: [facility] 08-23-2021 08:40-0500 Body height 165.1 cm Helio Wiley Other Phone: [facility] 08-23-2021 08:40-0500 Body temperature 99.14 [degF] Helio Wiley Other Phone: [facility] 08-23-2021 08:40-0500 Body weight 55 kg Helio Wiley Other Phone: [facility] Encounters Encounter Date Encounter Type Care Provider Facility Start: 08-23-2021 End: 08-23-2021 Emergency department patient visit Kris Castaneda [facility] Emergency 14 Procedures Date Procedure Procedure Detail Performing Clinician Start: 08-23-2021 End: 08-23-2021 EKG impression Kris Castaneda Start: 08-23-2021 End: 08-23-2021 EKG impression Kris Castaneda Plan of Treatment Date Care Activity Detail Author Start: 11-25-2020 H/O: L cataract extraction History of cataract surgery, left Date: 25-Nov-2020 [facility] Start: 11-11-2020 H/O: R cataract extraction History of right cataract surgery Date: 11-Nov-2020 [facility] Hip fracture Hip fracture [facility] History of laser ass isted in situ keratomileusis History of laser assisted in situ keratomileusis [facility] Payers Date Payer Category Payer Policy ID Unknown [facility] [place] Social History Date Type Detail Facility [facility] Tobacco smoking consumption unknown [facility] Clinical Notes 10-22-2020 to 11-26-2020 Note Date & Type Note Facility 11-26-2020 Note HNO ID: [id number] Author: Zane Ortiz Service: ? Author Type: [...] day. No follow up appointment given at [facility] [place], patient to follow up with [facility] 3. Status post LASIK surgery [...] about the findings, diagnosis, and treatment options. [facility] 11-25-2020 Note Post Operative Note: Post-Procedure Diagnosis: 1. Combined Form Age Related Cataract Left Eye 2. Regular Astigmatism Left Eye Procedure: 1. Cataract Extraction with Toric Intraocular Lens Implant Left Eye Surgeon: Zane Ortiz MD Resident/Fellow/Other Yarn Sizer: None Estimated Blood Loss (mL): none Specimen: [...] Last Updated: 25-Nov-2020 08:12 by Zane Ortiz) [facility] 11-25-2020 Note History & Physical R eviewed: [...] Last Updated: 25-Nov-2020 06:51 by Zane Ortiz) [facility] 11-20-2020 Note HNO ID: [id number] Author: Zane Ortiz Service: ? Author Type: [...] Implant Left Eye scheduled for 11/25/2020 at [facility]. Discussed modified monovision with patient, patient would [...] for COVID-19 testing to be done at [facility]. Hospital to contact patient with date and time. 2. Regular astigmatism of left eye - ICD9: 367.21, ICD10: H52.222 Traditional Cataract Surgery with Toric Intraocular Lens Implant Left Eye scheduled for 11/25/2020 at [facility]. 3. Status post cataract extraction and insertion [...] technical staff. I have seen and examined Heahter Mckeon. I have discussed the examination findings, diagnosis, and treatment options with Heather Mckeon and/or her family. I have also reviewed and agree with the assessment and plan as stated above and agree with all its relevant components. I gave the patient the opportunity to ask questions about the findings, diagnosis, and treatment options. [facility] 11-12-2020 Note HNO ID: [id number] Author: Zane Ortiz Service: ? Author Type: [...] for the left eye on 11-25-2020 at [facility]. Patient wishes to have cataract surgery [...] about the findings, diagnosis, and treatment options. [facility] 11-11-2020 Note Post Operative Note: Post-Procedure Diagnosis: 1. Combined Form Age Related Cataract Right eye Procedure: 1. Cataract Extraction with Intraocular Lens Implant Right Eye Surgeon: Zane Ortiz MD Resident/Fellow/Other Yarn Sizer: None Estimated Blood Loss (mL): none Specimen: [...] Last Updated: 11-Nov-2020 11:17 by Zane Ortiz) [facility] 11-11-2020 Note History & Physical R eviewed: [...] Last Updated: 11-Nov-2020 08:48 by Zane Ortiz) [facility] 11-08-2020 Note HNO ID: [id number] Author: Zane Ortiz Service: ? Author Type: [...] surgery with basic Intraocular lens 11/11/2020 at [facility]. Patient wishes to have cataract surgery with [...] for COVID-19 testing to be done at [facility]. Hospital to contact patient with date [...] about the findings, diagnosis, and treatment options. [facility] 11-06-2020 Note HNO ID: [id number] Author: Zane Ortiz Service: ? Author Type: [...] surgery with basic Intraocular lens 11/11/2020 at [facility]. Patient wishes to have cataract surgery with [...] for COVID-19 testing to be done at [facility]. Hospital to contact patient with date [...] about the findings, diagnosis, and treatment options. [facility] 11-04-2020 Note HNO ID: [id number] Author: Zen Olivarez Service: ? Author Type: [...] of its relevant components. Zen Olivarez MD [facility] 10-22-2020 Note HNO ID: [id number] Author: Zane Ortiz Service: ? Author Type: [...] about the findings, diagnosis, and treatment options. [facility] Summary Purpose Family History No Family History [...] CREATED AUTHOR AUTHOR'S ORGANIZ ATION 02/06/2019 [facility] DATE CREATED AUTHOR AUTHOR'S ORGANIZ ATION 04/05/2019 [facility] DATE CREATED AUTHOR AUTHOR'S ORGANIZ ATION 12/11/2019 [employer] DATE CREATED AUTHOR AUTHOR'S ORGANIZ ATION 11/24/2020 [facility] DATE CREATED AUTHOR AUTHOR'S ORGANIZ ATION 08/26/2021 [facility] DATE CREATED AUTHOR AUTHOR'S ORGANIZ ATION 10/14/2021 [facility] <item> Privacy Markings (unrecogniz ed section and [...] BE BASED ON THE PRIMARY CLINICAL RECORDS. [employer] provides no warranty or guarantee of the accuracy or completeness of information in this document.
[2023-11-30 10:55] LABS: Absolute Lymphocyte Count 1.63 X10^3/uL (0.83-4.51); Absolute Neutrophil Count 3.8 X10^3/uL (2.0-7.7); Basophil# 0.03 X10^3/uL; Basophil% 0.5 % (0-1); Eosinophil# 0.17 X10^3/uL; Eosinophils% 2.8 % (0-5); Hematocrit 40.8 % (37-47); Lymphocyte # 1.63 X10^3/ul (0.83-4.51); Lymphocyte % 27.2 % (19-41); Mean Corp Hgb Conc 31.9 g/dL (32-36); Mean Corpuscular Hgb 30.2 pg (27.0-32.0); Mean Corpuscular Volume 94.7 fL (81-99); Mean Platelet Vol. 9.8 fl (6.2-12.0); Monocyte# 0.41 X10^3/uL; Monocyte% 6.8 % (0-10); NRBC Flagged by Analyzer 0 % (0-5); Neutrophil # 3.75 X10^3/uL (2.7-7.7); Neutrophil % 62.5 % (47-70); Platelet Count 291 K/mm3 (150-450); RBC Distribution Width CV 12.6 % (11.6-14.6); RBC Distribution Width SD 43.7 fl (35.1-43.9); Red Blood Count 4.31 M/mm3 (4.2-5.4)
[2023-11-30 11:14] LABS: PTHIN 100.4 pg/mL (18.4-80.1)
[2023-11-30 11:18] LABS: Anion Gap 4 (5-15); BUN 11 mg/dL (7-18); Chloride 110 mmol/L (98-107); Creatinine, Serum 0.69 mg/dL (0.55-1.02); EST Glomerular Filtration Rate 92 mL/min (>60); Est Glom Filt Rate - Afr Amer 112 mL/min (>60); Glucose 100 mg/dL (74-106); Magnesium 2.2 mg/dL (1.6-2.6); Phosphorus 2.2 mg/dL (2.5-4.9); Potassium 3.6 mmol/L (3.5-5.1); Sodium Level 141 mmol/L (136-145)
[2023-11-30 11:20] LABS: Vitamin D,25 Hydroxy 39.5 ng/mL
== END | disposition home or self-care (01) ==
LOC: MTLAB 09:28
PROVIDERS: PCP Family Medicine; Referring Provider Family Medicine; Visit Provider Family Medicine
DX: E21.3 Hyperparathyroidism, unspecified (principal); M81.0 Age-related osteoporosis without current pathological fracture
CPT/HCPCS: 36415; 80048; 82306; 83735; 83970; 84100; 85025

== ENCOUNTER → 2023-12-07 | Outpatient (CLI) | payer OTHER, SELFPAY ==
--- NOTE | 2023-12-07 12:45 | RAD_ITS ---
STUDY: X-RAY - LUMBOSACRAL SPINE REASON FOR EXAM: Female, 63 years old. Spondylosis without myelopathy or radiculopathy, lumbosacral jenny TECHNIQUE: 6 view(s) of the lumbosacral spine were obtained. COMPARISON: Prior comparison studies are not available for review at this time. FINDINGS: Normal lumbar lordosis. There is no substantial scoliosis. There is normal alignment of the vertebrae on flexion, extension and neutral views. There is multilevel endplate spondylosis of the lumbar vertebrae. Normal disc space heights. No spondylolysis. No compression fracture. Normal bilateral sacral ala, sacroiliac joints, and visualized sacrum. Normal visualized soft tissue structures. RAD/L/S Spine w Bend Min 6 Vw IMPRESSION: Mild spondylosis. Electronically Signed: Morris Dawson MD ([place]) at 22:22 EDT ,
== END | disposition home or self-care (01) ==
LOC: RAD 12:21
PROVIDERS: PCP Family Medicine; Referring Provider Anesthesiology Pain Medicine; Visit Provider Anesthesiology Pain Medicine
DX: M47.817 Spondylosis without myelopathy or radiculopathy, lumbosacral region (principal)
CPT/HCPCS: 72114

== ENCOUNTER → 2024-01-16 | Outpatient (CLI) | payer OTHER, SELFPAY ==
[2024-01-16 13:07] LABS: 24HR UR TOTAL VOLUME 600 ml; Calcium Urine pH Range 1; Urine Calcium (Random) > 37.5 (Not Estab.)
== END | disposition home or self-care (01) ==
PROVIDERS: PCP Family Medicine; Referring Provider Family Medicine; Visit Provider Family Medicine
DX: E21.3 Hyperparathyroidism, unspecified (principal)
CPT/HCPCS: 81050; 82340

== ENCOUNTER → 2025-02-18 | Outpatient (CLI) | payer OTHER, SELFPAY ==
[2025-02-18 10:31] LABS: Erythrocyte Sedimentation Rate 6 mm/hr (0-30)
[2025-02-18 10:50] LABS: ALB/GLOB Ratio 1.7 RATIO (0.9-2.4); AST(SGOT) 29 U/L (<=31); Alanine Aminotransfer ALT/SGPT 28 U/L (<=34); Albumin, Serum 4.4 g/dL (3.4-4.8); Alkaline Phosphatase 100 U/L (35-104); Anion Gap 11 (5-15); BUN 10 mg/dL (4-19); BUN/Creat Ratio 12.3 RATIO (10-20); Calcium,Total 9.5 mg/dL (7.6-11.0); Carbon Dioxide 24.4 mmol/L (21.0-32.0); Chloride 106 mmol/L (98-108); Creatinine, Serum 0.82 mg/dL (0.70-1.20); EST Glomerular Filtration Rate 81 (>60); Globulin 2.6 g/dL (2.2-4.2); Glucose 104 mg/dL (70-99); Potassium 4.3 mmol/L (3.3-5.1); Sodium Level 141 mmol/L (133-145)
[2025-02-18 11:24] LABS: Vitamin B12 > 4000 pg/mL (180-914); Vitamin D,25 Hydroxy 30.4 ng/mL (30-100)
== END | disposition home or self-care (01) ==
LOC: MTLAB 09:05
PROVIDERS: PCP Family Medicine; Referring Provider Family Medicine; Visit Provider Family Medicine
DX: M81.0 Age-related osteoporosis without current pathological fracture (principal); K50.90 Crohn's disease, unspecified, without complications; E53.8 Deficiency of other specified B group vitamins
CPT/HCPCS: 36415; 80053; 82306; 82607; 84443; 85652

== ENCOUNTER → 2025-08-25 | Outpatient (CLI) | payer OTHER, SELFPAY ==
[2025-08-25 11:10] LABS: Anion Gap 8 (5-15); BUN 9 mg/dL (4-19); BUN/Creat Ratio 11.9 RATIO (10-20); Calcium,Total 9.2 mg/dL (7.6-11.0); Carbon Dioxide 26.4 mmol/L (21.0-32.0); Chloride 106 mmol/L (98-108); Glucose 97 mg/dL (70-99); Potassium 4.2 mmol/L (3.3-5.1)
[2025-08-25 12:59] LABS: PTHIN 72 pg/mL (11-61)
== END | disposition home or self-care (01) ==
LOC: MTLAB 09:19
PROVIDERS: PCP Family Medicine; Referring Provider Family Medicine; Visit Provider Family Medicine
DX: E03.8 Other specified hypothyroidism (principal); M81.0 Age-related osteoporosis without current pathological fracture
CPT/HCPCS: 36415; 80048; 83970; 84439; 84443